=== PATIENT | female | born 1945 | race Caucasian/White ===

== ENCOUNTER 2020-10-06 18:45 | Outpatient (REF) | payer MEDICARE, OTHER, SELFPAY ==
[2020-10-06 22:58] LABS: Vitamin B12 1921 pg/mL (193-986)
[2020-10-08 15:27] LABS: ANA Interpretation Positive (Negative); ANA Titer Pattern 1:80 Speckled
[2020-10-08 16:33] LABS: c-ANCA Negative (Negative); p-ANCA Negative (Negative)
== END 2020-10-06 19:05 ==
LOC: NCHCN 18:45
PROVIDERS: PCP Internal Medicine; Visit Provider Internal Medicine
DX: R41.3 Other amnesia (principal); D53.9 Nutritional anemia, unspecified; G62.9 Polyneuropathy, unspecified
CPT/HCPCS: 82607; 84443; 86038; 86255

== ENCOUNTER 2020-10-13 01:21 | Outpatient (CLI) | payer MEDICARE, OTHER, SELFPAY ==
--- NOTE | 2020-10-13 11:22 | DI.RAD_ITS ---
EXAM: XR CERVICAL SP COMP W FLEX/EXT CLINICAL HISTORY: NECK PAIN,M54.2. TECHNIQUE: 2D digital imaging was performed. COMPARISON: No exams were available for comparison FINDINGS: The odontoid is intact and the lateral masses are well aligned. There is a left convex curvature of the spine. There is exaggeration of the kyphosis at C6-C7. There is widening of the disc space at C 6-C7. No acute fractures or subluxations. There is disc space narrowing at C2-3 stoma C3-C4, C4-C5 and C5-C6. Multilevel neural foraminal stenosis is seen bilaterally. On the right, the findings are most marked at C5-6 and C6-C7. On the left, all levels of the cervical spine are involved. The pre vertebral soft tissues are unremarkable. 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 DATA REPOSITORY: RADIATION DOSE DELIVERED:
== END 2020-10-13 01:41 ==
PROVIDERS: PCP Internal Medicine; Visit Provider Internal Medicine
DX: M47.812 Spondylosis without myelopathy or radiculopathy, cervical region (principal); M40.202 Unspecified kyphosis, cervical region; M48.02 Spinal stenosis, cervical region
CPT/HCPCS: 72052

== ENCOUNTER 2020-11-05 12:37 | Outpatient (REF) | payer MEDICARE, OTHER, SELFPAY ==
[2020-11-05 22:12] LABS: ESR 32 mm/hr (0-30)
== END 2020-11-05 12:57 ==
LOC: NCHCN 12:37
PROVIDERS: PCP Internal Medicine; Visit Provider Internal Medicine
DX: G62.9 Polyneuropathy, unspecified (principal); M81.0 Age-related osteoporosis without current pathological fracture; M48.02 Spinal stenosis, cervical region; R43.2 Parageusia
CPT/HCPCS: 85652

== ENCOUNTER 2020-11-15 01:58 | Outpatient (CLI) | payer MEDICARE, OTHER, SELFPAY ==
[2020-11-15 12:09] LABS: CREATININE 1.15 mg/dL (0.55-1.02)
[2020-11-15] MEDS: Omnipaque 350 MG/ML 100 ML BTL IJ (13:13)
[2020-11-15] MEDS: Normal Saline - Diluent 50 ML VIAL IV (13:13)
--- NOTE | 2020-11-15 13:15 | DI.CT_ITS ---
EXAM: CT FACIAL W CLINICAL HISTORY: ATYPICAL FACIAL PAIN, G50.1. TECHNIQUE: Imaging Protocol: Axial computed tomography images with coronal and sagittal reformatted images were created and reviewed. IV contrast: Omnipaque 350-100 cc COMPARISON: No exams were available for comparison FINDINGS: MAXILLOFACIAL CT SCAN: Patient's head is somewhat tilted. 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 There is no evidence of facial fractures nor little blood fracture. The maxillary sinuses are clear. Ostiomeatal units are patent. Sphenoid sinuses are clear as are the ethmoid air cells. Frontal sinuses are clear. Nasal septum is relatively midline. No evidence of sign ificant nasal septal spur. There is vira bullosa of the right middle turbinate but this is nonobstr uctive. Visualized orbits: Unremarkable Nasopharynx: Unremarkable Oropharynx: Unremarkable Hypopharynx: Unremarkable. Free edge of the epiglottis as well as the valleculae appear unremarkable. Aryepiglottic folds are unremarkable. Vocal cords are not included in the field of view nor is the s ubglottic airway and thyroid gland. Lymph nodes: No obvious lymphadenopathy evident on either side of the neck. Salivary glands: There are no parotid gland masses. There is asymmetry in the appearance of the parot id glands, right smaller than left both other mass evident on either side. Also asymmetry in the size of the submandibular glands, right smaller than left. There are no submand ibular gland mass is. No obvious calculi. No inflammatory streaking nor overlying thickening of the p latysma muscles.. No subcutaneous streaking. Osseous: No lytic osseous lesions identified. 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 IMPRESSION: 1. Asymmetry in the appearance of the salivary glands. The right parotid and submandibular glands are smaller than the left parotid and submandibular glands. 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 2. No abnormal mass or lymphadenopathy nor abnormal fluid collection evident on either side of the ne ck. 3. Clear paranasal sinuses and mastoid air cells. Also no fluid in the middle ear cavities.. RADIATION DOSE DELIVERED: 486.64mGy.cm Total DLP DATA REPOSITORY: All CT scans at this facility are submitted to the National Radiology Data Registry (NRDR) Dose Index Registry (DIR) with the [employer] ([employer]). RADIATION OPTIMIZATION: All CT scans at this facility use at least one of these dose optimization te chniques: automated exposure control; mA and/or kV adjustment per patient size (includes targeted exa ms where dose is matched to clinical indication); or iterative reconstruction.
== END 2020-11-15 02:18 ==
PROVIDERS: PCP Internal Medicine; Visit Provider Internal Medicine
DX: G50.1 Atypical facial pain (principal); K11.8 Other diseases of salivary glands; Q76.49 Other congenital malformations of spine, not associated with scoliosis
CPT/HCPCS: 70487; 82565; J3490

== ENCOUNTER 2020-12-23 16:05 | Outpatient (REF) | payer MEDICARE, OTHER, SELFPAY ==
[2020-12-23 21:31] LABS: ALT 22 U/L (14-59); AST 18 U/L (15-37); Albumin 4.3 g/dL (3.4-5.0); Alkaline Phosphatase 72 U/L (46-116); Anion Gap 12.3 mmol/L (3-11); BUN 40 mg/dL (7-18); Bilirubin, Total 0.4 mg/dL (0.2-1.0); CO2 23.7 mmol/L (21.0-32.0); CREATININE 1.1 mg/dL (0.55-1.02); Calcium 11.2 mg/dL (8.5-10.1); Chloride 106 mmol/L (98-107); Estimated GFR 48.42 (mL/min/1.73m2); Glucose 100 mg/dL (74-106); Potassium 5.2 mmol/L (3.5-5.1); Sodium 142 mmol/L (136-145); Total Protein 7.5 g/dL (6.4-8.2)
[2020-12-23 21:42] LABS: PHOSPHORUS 3.3 mg/dL (2.6-4.7)
[2020-12-23 22:16] LABS: Vitamin D 25 Total 39.1 ng/ml (30-100)
[2020-12-27 11:28] LABS: Parathyroid Hormone,Intact 37 pg/mL (19-88)
== END 2020-12-23 16:06 | disposition home or self-care (01) ==
LOC: NCHCN 16:05
PROVIDERS: PCP Internal Medicine; Visit Provider Internal Medicine
DX: M85.859 Other specified disorders of bone density and structure, unspecified thigh (principal)
CPT/HCPCS: 80053; 82306; 83970; 84100

== ENCOUNTER 2021-05-03 16:33 | Outpatient (REF) | payer MEDICARE, OTHER, SELFPAY ==
[2021-05-03 21:15] LABS: Anion Gap 12.6 mmol/L (3-11); BUN 28 mg/dL (7-18); CO2 23.4 mmol/L (21.0-32.0); Calcium 10.7 mg/dL (8.5-10.1); Chloride 106 mmol/L (98-107); Estimated GFR 54.05 (mL/min/1.73m2); FREE T4 1.18 ng/dL (0.76-1.46); Glucose 84 mg/dL (74-106); Potassium 4.6 mmol/L (3.5-5.1); Sodium 142 mmol/L (136-145); TSH 0.49 uIU/mL (0.36-3.74)
[2021-05-05 10:30] LABS: Parathyroid Hormone,Intact 30 pg/mL (19-88)
== END 2021-05-03 16:34 | disposition home or self-care (01) ==
LOC: NCHCN 16:33
PROVIDERS: PCP Internal Medicine; Visit Provider Internal Medicine
DX: E04.1 Nontoxic single thyroid nodule (principal); R53.83 Other fatigue; R63.5 Abnormal weight gain; I10 Essential (primary) hypertension; E21.5 Disorder of parathyroid gland, unspecified
CPT/HCPCS: 80048; 83970; 84439; 84443

== ENCOUNTER 2021-10-17 12:59 | Outpatient (REF) | payer MEDICARE, OTHER, SELFPAY ==
[2021-10-17 15:14] LABS: HCT 34.4 % (36.0-46.0); HGB 11.3 g/dL (11.2-15.7); MCH 32.9 pg (27.0-33.0); MCHC 32.8 % (32.0-36.0); MCV 100.3 fL (80-95); MPV 10.3 fL (8.0-11.0); Platelet Count 248 10^3/uL (130-400); RBC 3.43 10^6/uL (3.93-5.22); RDW 13.3 % (11.7-14.6); RDW-SD 49.3 fL; WBC 6.56 10^3/uL (4.4-10.8)
[2021-10-17 16:01] LABS: ALT 24 U/L (14-59); AST 22 U/L (15-37); Albumin 4.1 g/dL (3.4-5.0); Alkaline Phosphatase 68 U/L (46-116); Anion Gap 10.6 mmol/L (3-11); BUN 16 mg/dL (7-18); Bilirubin, Total 0.4 mg/dL (0.2-1.0); CO2 25.4 mmol/L (21.0-32.0); CREATININE 0.9 mg/dL (0.55-1.02); Chloride 105 mmol/L (98-107); Glucose 88 mg/dL (74-106); Magnesium 1.7 mg/dL (1.8-2.4); Potassium 4.8 mmol/L (3.5-5.1); Sodium 141 mmol/L (136-145); TSH 0.33 uIU/mL (0.36-3.74); Total Protein 7.1 g/dL (6.4-8.2); Vitamin B12 680 pg/mL (193-986)
[2021-10-17 19:21] LABS: FREE T4 0.95 ng/dL (0.76-1.46)
== END 2021-10-17 13:00 | disposition home or self-care (01) ==
LOC: NCHCN 12:59
PROVIDERS: PCP Internal Medicine; Visit Provider Internal Medicine
DX: I10 Essential (primary) hypertension (principal); E83.52 Hypercalcemia; R41.3 Other amnesia; R00.2 Palpitations
CPT/HCPCS: 80053; 85027; 82607; 83735; 84439; 84443

== ENCOUNTER 2021-10-28 12:17 | Outpatient (REF) | payer MEDICARE, OTHER, SELFPAY ==
[2021-10-30 17:03] LABS: COVID-19 RT-PCR UVMMC Result Positive (Negative)
== END 2021-10-28 12:18 | disposition home or self-care (01) ==
LOC: NCHCN 12:17
PROVIDERS: PCP Internal Medicine; Visit Provider Internal Medicine
DX: Z20.822 Contact with and (suspected) exposure to COVID-19 (principal); J06.9 Acute upper respiratory infection, unspecified
CPT/HCPCS: U0003

== ENCOUNTER 2021-11-01 01:42 | Outpatient (CLI) | payer MEDICARE, OTHER, SELFPAY ==
[2021-11-01 12:57] VITALS: BP 167/69; PULSE 85; RESP 22; TEMP 36.4; O2SAT 99
[2021-11-01 13:16] VITALS: BP 148/73; PULSE 72; RESP 18; TEMP 36.6; O2SAT 99
[2021-11-01 13:41] VITALS: BP 153/75; PULSE 70; RESP 18; TEMP 36.8; O2SAT 98
[2021-11-01 14:42] VITALS: BP 160/80; PULSE 69; RESP 16; TEMP 37; O2SAT 100
== END 2021-11-01 01:43 | disposition home or self-care (01) ==
LOC: INF 01:42
PROVIDERS: PCP Internal Medicine; Visit Provider Family Medicine
DX: U07.1 COVID-19 (principal)
CPT/HCPCS: 96365; Q0047

== ENCOUNTER 2022-09-07 14:09 | Outpatient (REF) | payer MEDICARE, OTHER, SELFPAY ==
[2022-09-07 14:47] LABS: BUN 30 mg/dL (7-18); Calcium 10.1 mg/dL (8.5-10.1); Chloride 105 mmol/L (98-107); Estimated GFR 58.02 (mL/min/1.73m2); Glucose 120 mg/dL (74-106); Potassium 4.7 mmol/L (3.5-5.1); Sodium 142 mmol/L (136-145)
== END 2022-09-07 14:10 | disposition home or self-care (01) ==
LOC: NCHCN 14:09
PROVIDERS: PCP Internal Medicine; Visit Provider Internal Medicine
DX: I10 Essential (primary) hypertension (principal); R63.5 Abnormal weight gain; F41.8 Other specified anxiety disorders; G50.1 Atypical facial pain
CPT/HCPCS: 80048